=== PATIENT | female | born 1970 | race Caucasian/White ===

== ENCOUNTER → 2016-06-29 | Outpatient (CLI) | payer OTHER, MEDICAID | LOC: FIMAGING 13:33 | PROVIDERS: ATTEND Family Medicine | DX: M54.5 Low back pain (principal); S09.90XD Unspecified injury of head, subsequent encounter ==

== ENCOUNTER → 2016-12-12 | Outpatient (CLI) | payer OTHER, MEDICAID | LOC: CIMAGING 12:06 | PROVIDERS: ATTEND Family Medicine | DX: M19.071 Primary osteoarthritis, right ankle and foot (principal); M20.11 Hallux valgus (acquired), right foot | CPT/HCPCS: 73630-PO ==